=== PATIENT | female | born 1965 | race Two or more races ===

== ENCOUNTER 2024-12-11 12:15 | Inpatient (IN) | payer OTHER ==
[~2024-12-11] VITALS: Ht 172.7 cm; Wt 69.4 kg
[2024-12-11] MEDS ORDERED: TOPROL XL50 M1 PO (13:50)
[2024-12-11] MEDS ORDERED: VALSARTAN-HCTZ1 EAC4 PO (13:50)
[2024-12-11] MEDS ORDERED: TAPAZOLE5 MG PO (13:53)
[2024-12-17] MEDS ORDERED: METRONIDAZOLE/SODIUM CHLORIDE 500 MG/100 ML PIGGYBACK IV ONE (09:14)
[2024-12-17] MEDS ORDERED: CEFTRIAXONE SODIUM 2,000 MG VIAL ONE (09:14)
[2024-12-17] MEDS ORDERED: BUPIVACAINE HCL/MPF 0.5% 30ML VIAL ONE (11:16)
[2024-12-17] MEDS ORDERED: LIDOCAINE HCL 1%/EPINEPHRINE 20ML VIAL IJ ONE (11:16)
[2024-12-17] MEDS ORDERED: SUGAMMADEX SODIUM 200 MG/2 ML VIAL IV ONE (12:03)
[2024-12-17] MEDS ORDERED: POVIDONE-IODINE 118 ML BOTT TOP ONE (12:03)
[2024-12-17] MEDS ORDERED: DEXTROSE 50 % IN WATER 0.5 G/ML DISP.SYRIN IV PRN (14:15)
[2024-12-17] MEDS ORDERED: MORPHINE SULFATE 4 MG/ML CARTRIDGE IV PRN (14:15)
[2024-12-17] MEDS ORDERED: OxyCODONE HCL 5 MG TABLET (ROXICODONE) PO PRN (14:15)
[2024-12-17] MEDS ORDERED: ONDANSETRON HCL 2 MG/ML VIAL IV PRN (14:15)
[2024-12-17] MEDS ORDERED: RINGERS SOLUTION,LACTATED 1,000 ML IV SCH (14:15)
[2024-12-17] MEDS ORDERED: ENALAPRILAT DIHYDRATE 1.25 MG/ML VIAL IV PRN (15:30)
[2024-12-17 15:31] LABS: BASO % 0.4 % (0.1-1.2); EOS # 0.17 (0.04-0.54); EOS % 1.4 % (0.7-7.0); LYMPH # 2.74 (1.18-3.74); LYMPH % 23.2 % (19.3-53.1); MEAN PLATELET VOLUME 10.50 fl (9.4-12.4); MONO # 0.65 (0.24-0.82); MONO % 5.5 % (4.7-12.5); NEUT # 8.16 (1.56-6.13); NEUT % 69.2 % (34.0-71.1); RED CELL DISTRIBUTION WIDTH 13.6 % (11.6-14.4)
[2024-12-17 15:43] LABS: BUN CREA RATIO 9.0 (7.0-25.0); CREATININE SERUM 0.92 mg/dL (0.55-1.02); GFR 62.06; GLUCOSE FASTING 142.0 mg/dL (65-100); OSMOLALITY SERUM 291.0 MOSM/KG (275-295)
[2024-12-17] MEDS ORDERED: GABAPENTIN 300 MG CAPSULE PO ONE (16:59)
[2024-12-17] MEDS ORDERED: GABAPENTIN 300 MG CAPSULE PO SCH (17:00)
[2024-12-17 19:00] VITALS: BP 122/70; O2SAT 97
[2024-12-17] MEDS ORDERED: ACETAMINOPHEN 500 MG GEL..CAP PO SCH (20:00)
[2024-12-17] MEDS ORDERED: FAMOTIDINE/PF 20 MG/2 ML VIAL IV PUSH SCH (21:00)
[2024-12-18 00:48] VITALS: BP 127/72; O2SAT 96
[2024-12-18 06:50] LABS: BASO % 0.2 % (0.1-1.2); EOS # 0.05 (0.04-0.54); EOS % 0.5 % (0.7-7.0); LYMPH # 2.14 (1.18-3.74); LYMPH % 21.1 % (19.3-53.1); MEAN PLATELET VOLUME 10.50 fl (9.4-12.4); MONO # 0.87 (0.24-0.82); MONO % 8.6 % (4.7-12.5); NEUT # 7.03 (1.56-6.13); NEUT % 69.3 % (34.0-71.1); RED CELL DISTRIBUTION WIDTH 13.2 % (11.6-14.4)
[2024-12-18 07:27] LABS: BUN CREA RATIO 8.0 (7.0-25.0); CREATININE SERUM 0.77 mg/dL (0.55-1.02); GFR 76.21; GLUCOSE FASTING 102.0 mg/dL (65-100); OSMOLALITY SERUM 283.0 MOSM/KG (275-295)
[2024-12-18] MEDS ORDERED: METHIMAZOLE 5 MG TABLET PO SCH (09:00)
[2024-12-18] MEDS ORDERED: METHIMAZOLE 10 MG TABLET PO SCH (09:00)
[2024-12-18] MEDS ORDERED: PATIENTS OWN MEDICATION (MEDICAMENTO EN PISO) PO SCH (09:00)
[2024-12-18] MEDS ORDERED: METOPROLOL SUCCINATE 50 MG TAB.SR.24H PO SCH (09:00)
[2024-12-18] MEDS ORDERED: SUGAMMADEX SODIUM 200 MG/2 ML VIAL IV ONE (12:45)
[2024-12-18] MEDS ORDERED: ENOXAPARIN SODIUM 40 MG/0.4 ML SYRINGE SUBCUTANEO SCH (17:00)
[2024-12-18 18:07] VITALS: BP 129/76; O2SAT 99
[2024-12-18] MEDS ORDERED: POLYETHYLENE GLYCOL 3350 17 GM BLIST.PACK PO SCH (21:00)
[2024-12-19 01:31] VITALS: BP 134/78; O2SAT 98
[2024-12-19 06:48] LABS: BASO % 0.3 % (0.1-1.2); EOS # 0.14 (0.04-0.54); EOS % 1.6 % (0.7-7.0); LYMPH # 1.82 (1.18-3.74); LYMPH % 20.8 % (19.3-53.1); MEAN PLATELET VOLUME 10.70 fl (9.4-12.4); MONO # 0.80 (0.24-0.82); MONO % 9.1 % (4.7-12.5); NEUT # 5.96 (1.56-6.13); NEUT % 68.0 % (34.0-71.1); RED CELL DISTRIBUTION WIDTH 13.4 % (11.6-14.4)
[2024-12-19 07:20] LABS: BUN CREA RATIO 8.0 (7.0-25.0); CREATININE SERUM 0.63 mg/dL (0.55-1.02); GFR 96.07; GLUCOSE FASTING 98.0 mg/dL (65-100); OSMOLALITY SERUM 290.0 MOSM/KG (275-295)
[2024-12-19] MEDS ORDERED: ENOXAPARIN SODIUM 40 MG/0.4 ML SYRINGE SUBCUTANEO SCH (09:00)
[2024-12-19 10:30] VITALS: BP 135/81; O2SAT 98
== END 2024-12-19 14:02 | disposition home or self-care (01) | DRG 331 ==
LOC: SURG 12-17 07:00 → O/R 12-17 08:00 → SURH 12-17 08:00 → SURG 12-17 12:15 → SURH 12-17 15:36
PROVIDERS: Internal Medicine Geriatric Medicine; ADMIT Surgery; ATTEND Surgery
PROC: 0DJD8ZZ Inspection of Lower Intestinal Tract, Via Natural or Artificial Opening Endoscopic (ICD-10-PCS; 2024-12-17)
PROC: 0DTE4ZZ Resection of Large Intestine, Percutaneous Endoscopic Approach (ICD-10-PCS; principal; 2024-12-17 07:00)
DX: K57.32 Diverticulitis of large intestine without perforation or abscess without bleeding (principal); R10.32 Left lower quadrant pain; I11.9 Hypertensive heart disease without heart failure; E05.90 Thyrotoxicosis, unspecified without thyrotoxic crisis or storm; E78.00 Pure hypercholesterolemia, unspecified